=== PATIENT | male | born 1975 | race Caucasian/White ===

== ENCOUNTER → 2018-12-02 | Outpatient (CLI) | payer BC ==
[~2018-12-02] MED LIST: ALBUTEROL0.09 MG/A2 IH; ALBUTEROL0.09 MG/A2 INH; ALKA SELTZER PL PO; ALLEGRA D 12 HO1 TER PO; ALLERGY RELIEF10 MG PO; AMOXIL500 MG PO; DULE1ARO1 INH; FLUTICASON0.05 MG/AC NAS; MEDROL DOSEPAK4 MG PO; MOTRIN800 MG PO; Motrin,Rufen400 MG PO; PATADAY 2.5 ML2.5 M1 OPH; SINGULAIR10 M1 PO; ZITHROMAX Z PA250 MG PO; ZITHROMAX250 MG PO
== END | disposition home or self-care (01) ==
LOC: US 09:15
DX: K46.9 Unspecified abdominal hernia without obstruction or gangrene (principal)

== ENCOUNTER → 2021-03-21 | Outpatient (CLI) | payer BC | END | disposition home or self-care (01) | LOC: COVID19 17:43 | PROVIDERS: ATTEND Internal Medicine | DX: Z20.822 Contact with and (suspected) exposure to COVID-19 (principal) ==

== ENCOUNTER 2023-08-20 22:01 | Emergency (ER) | payer BC ==
[~2023-08-20] VITALS: Ht 180.3 cm; Wt 158.8 kg
[2023-08-20] MEDS ORDERED: VAZALORE81 MG PO (22:17)
[2023-08-20] MEDS ORDERED: ZESTRIL10 MG PO (22:17)
[2023-08-20] MEDS ORDERED: Tdap Vaccine 0.5 ML SYR (Adult Vaccine) IM ONE (22:35)
[2023-08-20] MEDS ORDERED: Lidocaine Hydrochloride 2 ML AMP SC ONE (22:40)
== END 2023-08-20 22:53 | disposition home or self-care (01) ==
LOC: ED 22:01
DX: S61.213A Laceration without foreign body of left middle finger without damage to nail, initial encounter (principal); W26.0XXA Contact with knife, initial encounter; Y93.89 Activity, other specified; Y92.89 Other specified places as the place of occurrence of the external cause; Y99.8 Other external cause status

== ENCOUNTER → 2024-06-09 | Outpatient (CLI) | payer BC ==
[~2024-06-09] MED LIST changes: +PERFLUTREN PROTEIN-A MICROSPHR 3 ML VIAL IV ONE; +VAZALORE81 MG PO; +ZESTRIL10 MG PO
== END | disposition home or self-care (01) ==
LOC: CARD 00:09
PROVIDERS: ATTEND Nurse Practitioner
DX: I65.23 Occlusion and stenosis of bilateral carotid arteries (principal); H35.62 Retinal hemorrhage, left eye